=== PATIENT | male | born 1970 | race Caucasian/White ===

== ENCOUNTER 2022-01-27 18:28 | Observation (INO) | payer OTHER, SELFPAY ==
[2022-01-27 18:37] VITALS: BP 142/81; PULSE 63; RESP 18; TEMP 36.7; O2SAT 97
--- NOTE | 2022-01-27 18:41 | DI.RAD.S_ITS ---
PROCEDURE: XR CHEST 1V INDICATIONS: chest pain TECHNIQUE: One view of the chest was acquired. COMPARISON: None. FINDINGS: Surgical changes and devices: None. Lungs and pleura: Lungs are clear. No pleural effusions or pneumothorax. Mediastinum: Mediastinal contours appear normal. Heart size is normal. Bones and chest wall: No suspicious bony lesions. Overlying soft tissues appear unremarkable. IMPRESSION: No acute cardiopulmonary abnormalities or focal airspace disease. Dictated by: Kevin Myrick M.D. on 01/27/2022 at 19:06 Approved by: Kevin Myrick M.D. on 01/27/2022 at 19:07
[2022-01-27 19:11] LABS: Add Manual Diff / Slide Review NO; Basophils Absolute Auto 0 /uL (0-100); Basophils Percent Auto 0.5 % (0-2); Eosinophils Absolute Auto 200 /uL (0-450); Eosinophils Percent Auto 2.9 % (2-4); Hematocrit 42.7 % (41-53); Hemoglobin 14.6 g/dL (13.5-17.5); Lymphocytes Absolute Auto 2600 /uL (1100-4500); Lymphocytes Percent Auto 39.2 % (25-40); Mean Corpuscular HGB Conc 34.2 % (30-36); Mean Corpuscular Hemoglobin 31.6 PG (26-34); Mean Corpuscular Volume 92.5 fL (80-100); Monocytes Absolute Auto 600 /uL (0-900); Monocytes Percent Auto 8.6 % (3-14); Neutrophils Absolute Auto 3200 /uL (1500-7000); Neutrophils Percent Auto 48.8 % (50-75); Platelet Count 229 X10^3/uL (150-400); Red Blood Cell Count 4.62 X10^6/uL (4.5-5.9); Red Cell Distribution Width 12.4 % (11.6-14.8); White Blood Cell Count 6.6 X10^3/uL (4.5-11.0)
[2022-01-27 19:35] LABS: Alanine Aminotransferase 69 IU/L (<50); Albumin 4.5 g/dL (3.5-5.0); Albumin Globulin Ratio 1.2 (1.0-2.8); Alkaline Phosphatase 58 U/L (38-126); Aspartate Aminotransferase 98 IU/L (17-59); BUN Creatinine Ratio 15.8 (6-22); Bilirubin Total 0.4 mg/dL (0.2-1.3); Blood Urea Nitrogen 12 mg/dL (9-20); Calcium 8.9 mg/dL (8.4-10.2); Carbon Dioxide 28 mmol/L (22-32); Chloride 100 mmol/L (98-107); Creatine Kinase 1172 U/L (55-170); Estimated Glomerular Filt Rate > 60 mL/min (>60); Globulin 3.9 g/dL (1.7-4.1); Glucose 106 mg/dL (70-100); Lipase 63 U/L (23-300); Magnesium 2.1 mg/dL (1.6-2.3); Sodium 141 mmol/L (137-145); Total Protein 8.4 g/dL (6.3-8.2)
[2022-01-27 19:46] LABS: Troponin I < 0.012 ng/mL (0.01-0.034)
[2022-01-27 19:49] LABS: CKMB % Relative Index 0.3 % (1.5-5.0); Creatine Kinase MB 3.14 ng/mL (<2.37)
[2022-01-27 19:51] LABS: HEMOLYSIS 57 (0-50)
[2022-01-27 22:00] LABS: Erythrocyte Sedimentation Rate 25 MM/HR (0-15)
[2022-01-27 22:10] VITALS: PULSE 72; O2SAT 99
[2022-01-27] MEDS: ASPIRIN 81 MG CHEW TAB 324 MG PO (22:25)
[2022-01-27 22:27] VITALS: BP 146/78; PULSE 66; O2SAT 97
--- NOTE | 2022-01-27 22:27 | ED.CHESTPAIN ---
HPI - Chest Pain General Chief Complaint: Chest Pain Stated Complaint: Chest pain, Fatigue, High pulse Time Seen by Provider: 01/27/22 22:07 Source: patient Mode of arrival: Ambulatory History of Present Illness HPI narrative: Patient here with . Chest pain-free at this time. Had 2 episodes this afternoon with near syncope/dizziness and palpitations. Had some discomfort in the chest. Currently symptom-free. Patient did receive COVID booster this past Tuesday. In the past vaccinations he would have chest discomfort. However today's symptoms are new. He was exercising at home and what was supposed to take 42 minutes ended up taking a lot longer. He was dizzy and felt like he was going to pass out. Had palpitations. Later in the day he went for very light walk and when he returned he was very fatigued tired with a very fast heart rate. Near-syncope as well. And dizziness. Patient had stress test many many years ago. He does have hypercholesteremia but is not on any medications. No recent illness otherwise. No primary family history of coronary artery disease. Related Data Home Medications Medication Instructions Recorded Confirmed fluticasone propionate 110 1 puff inhalation DAILY 01/28/22 01/28/22 mcg/actuation HFA aerosol inhaler (Flovent HFA) levetiracetam 500 mg 1,500 mg PO DAILY 01/28/22 01/28/22 tablet,extended release 24 hr (Keppra XR) levetiracetam 500 mg 2,000 mg PO ONCE PM 01/28/22 01/28/22 tablet,extended release 24 hr (Keppra XR) levothyroxine 150 mcg tablet 150 mcg PO DAILY 01/28/22 01/28/22 (Synthroid) Allergies Allergy/AdvReac Type Severity Reaction Status Date / Time ciprofloxacin Allergy Verified 01/27/22 18:41 erythromycin base Allergy Verified 01/27/22 18:41 oxcarbazepine Allergy Verified 01/27/22 18:41 [From Trileptal] prochlorperazine Allergy Verified 01/27/22 18:41 [From Compazine] Sulfa (Sulfonamide Allergy Verified 01/27/22 18:41 Antibiotics) phenytoin [From Dilantin] AdvReac Verified 01/27/22 18:41 Review of Systems Review of Systems Narrative: GENERAL: Denies chills, fatigue, malaise, fever, sweats. HEENT: Denies sinus pain, ear pain, sore throat RESPIRATORY: Denies dyspnea, cough CARDIOVASCULAR: Positive chest pain, palpitations, near-syncope GASTROINTESTINAL: Denies nausea, vomiting, abdominal pain : Denies dysuria, frequency, hematuria MUSCULOSKELETAL: denies muscle or bony pain SKIN: Denies rash, skin lesions NEUROLOGIC: Denies weakness, numbness, positive dizziness ROS Unobtainable: All systems reviewed & are unremarkable except as noted in HPI and below Patient History Social History household members: spouse Smoking Status: Never smoker alcohol intake: current Exam Narrative Exam Narrative: GENERAL: in no distress, not toxic not dyspneic HEAD: Normocephalic. EYES: Pupils equal round No scleral icterus. ENT: Mucous membranes moist. NECK: Trachea midline. CARDIOVASCULAR: Regular rate and rhythm without murmurs RESPIRATORY: Clear to auscultation. Breath sounds equal bilaterally. No wheezes, rales, or rhonchi. GASTROINTESTINAL: Abdomen soft, non-tender EXTREMITIES: No gross deformities. BACK: No flank tenderness. NEURO: AOx4. SKIN: Warm and dry PSYCH: Not anxious, is cooperative Initial Vital Signs Initial Vital Signs: Vital Signs Temperature 98.1 F 01/27/22 18:37 Pulse Rate 63 01/27/22 18:37 Respiratory Rate 18 01/27/22 18:37 Blood Pressure 142/81 H 01/27/22 18:37 Pulse Oximetry 97 01/27/22 18:37 Oxygen Delivery Method 01/27/22 18:37 Course Course Course Narrative: No new issues during course of stay Decision to Admit Date: 01/27/22 Decision to Admit time: 22:29 Orders Ordered: ED Orders 01/27/22 22:47 EC echo doppler complete Urgent Exercise treadmill NON NUC Urgent 01/27/22 22:48 Education, smoking cessation ONGOING 01/27/22 22:52 Urinalysis and Microscopic Urgent 01/27/22 23:56 COVID19 -Nasal RAPID/Pre-Proc Stat 01/28/22 00:55 Troponin I Q6H 01/28/22 05:00 Basic Metabolic Panel Routine 01/28/22 06:30 Troponin I Q6H Aspirin (Aspirin Ec 81 Mg Tablet) 81 mg PO DAILY [facility]MA[facility] Enoxaparin Sodium (Enoxaparin 40 Mg/0.4 Ml Syringe) 40 mg SUBCUT DAILY [facility] Morphine Sulfate (Morphine 2 Mg/Ml Inj) 2 mg IV Q5MIN PRN PRN Reason: Chest Pain Naloxone HCl (Naloxone 0.4 Mg/Ml Vial) 0.2 mg IV Q2MIN PRN PRN Reason: Opiate Reversal Nitroglycerin (Nitroglycerin 0.4 Mg Sl Tab) 0.4 mg SL [id number] PRN PRN Reason: Chest Pain Sodium Chloride (Sodium Chloride 0.9% Flush) 10 ml IV BID ALMAZ Sodium Chloride (Sodium Chloride 0.9% Flush) 10 ml IV PRN PRN PRN Reason: Flush Discontinued Medications Aspirin (Aspirin 81 Mg Chew Tab) 324 mg PO NOW ONE Stop: 01/27/22 22:20 Last Admin: 01/27/22 22:25 Dose: 324 mg Documented By: NR Reevaluation(s) Reevaluation #1: Reviewed results with patient and . Agree for admit. Currently chest pain-free no palpitations no dizziness Time: 22:30 Consultations Consultation #1: Spoke with hospitalist, Serena Wong, will admit patient Time: 23:11 Vital Signs Vital signs: Vital Signs - 8 hr 01/27/22 22:10 01/27/22 22:27 01/27/22 22:27 Pulse Rate 72 66 Respiratory Rate Blood Pressure 146/78 H Pulse Oximetry 99 97 01/27/22 22:30 01/27/22 22:30 01/27/22 23:00 Pulse Rate 66 Respiratory Rate 13 Blood Pressure 148/78 H 124/71 Pulse Oximetry 96 01/27/22 23:00 Pulse Rate 52 L Respiratory Rate 10 L Blood Pressure Pulse Oximetry 99 MDM - Chest Pain Lab Data Result diagrams: 01/27/22 18:30 01/27/22 18:30 Labs: Lab Results 01/27/22 01/27/22 01/27/22 Range/Units 18:30 18:30 18:30 WBC 6.6 (4.5-11.0) X10^3/uL RBC 4.62 (4.5-5.9) X10^6/uL Hgb 14.6 (13.5-17.5) g/dL Hct 42.7 (41-53) % MCV 92.5 (80-100) fL MCH 31.6 (26-34) PG MCHC 34.2 (30-36) % RDW 12.4 (11.6-14.8) % Plt Count 229 (150-400) X10^3/uL Neut % (Auto) 48.8 L (50-75) % Lymph % (Auto) 39.2 (25-40) % [place] % (Auto) 8.6 (3-14) % Eos % (Auto) 2.9 (2-4) % Baso % (Auto) 0.5 (0-2) % Neut # (Auto) 3200 (3629-7482) /uL Lymph # (Auto) 2600 (3227-1933) /uL [place] # (Auto) 600 (0-900) /uL Eos # (Auto) 200 (0-450) /uL Baso # (Auto) 0 (0-100) /uL ESR 25 H (0-15) MM/HR PT (10.1-12.7) SECONDS INR (0.9-1.3) APTT (26-36) SECONDS Sodium 141 (137-145) mmol/L Potassium 4.0 (3.4-5.1) mmol/L Chloride 100 (98-107) mmol/L Carbon Dioxide 28 (22-32) mmol/L BUN 12 (9-20) mg/dL Creatinine 0.76 (0.66-1.25) mg/dL Estimated GFR > 60 (>60) mL/min BUN/Creatinine Ratio 15.8 (6-22) Glucose 106 H (70-100) mg/dL Calcium 8.9 (8.4-10.2) mg/dL Magnesium 2.1 (1.6-2.3) mg/dL Total Bilirubin 0.4 (0.2-1.3) mg/dL AST 98 H (17-59) IU/L ALT 69 H (<50) IU/L Alkaline Phosphatase 58 (38-126) U/L Lactate Dehydrogenase (313-618) U/L Total Creatine Kinase 1172 H (55-170) U/L CK-MB (CK-2) 3.14 H (<2.37) ng/mL CK-MB (CK-2) Rel Index 0.3 L (1.5-5.0) % Troponin I < 0.012 (0.01-0.034) ng/mL NT-Pro-B Natriuret Pep (<125) pg/mL Total Protein 8.4 H (6.3-8.2) g/dL Albumin 4.5 (3.5-5.0) g/dL Globulin 3.9 (1.7-4.1) g/dL Albumin/Globulin Ratio 1.2 (1.0-2.8) Triglycerides (35-150) mg/dL Cholesterol (140-199) mg/dL LDL Cholesterol, Calc HDL Cholesterol (40-60) mg/dL Amylase (30-110) U/L Lipase 63 (23-300) U/L 01/27/22 01/27/22 01/27/22 Range/Units 18:50 18:50 18:50 WBC (4.5-11.0) X10^3/uL RBC (4.5-5.9) X10^6/uL Hgb (13.5-17.5) g/dL Hct (41-53) % MCV (80-100) fL MCH (26-34) PG MCHC (30-36) % RDW (11.6-14.8) % Plt Count (150-400) X10^3/uL Neut % (Auto) (50-75) % Lymph % (Auto) (25-40) % [place] % (Auto) (3-14) % Eos % (Auto) (2-4) % Baso % (Auto) (0-2) % Neut # (Auto) (5787-0761) /uL Lymph # (Auto) (6071-4755) /uL [place] # (Auto) (0-900) /uL Eos # (Auto) (0-450) /uL Baso # (Auto) (0-100) /uL ESR (0-15) MM/HR PT (10.1-12.7) SECONDS INR (0.9-1.3) APTT (26-36) SECONDS Sodium (137-145) mmol/L Potassium (3.4-5.1) mmol/L Chloride (98-107) mmol/L Carbon Dioxide (22-32) mmol/L BUN (9-20) mg/dL Creatinine (0.66-1.25) mg/dL Estimated GFR (>60) mL/min BUN/Creatinine Ratio (6-22) Glucose (70-100) mg/dL Calcium (8.4-10.2) mg/dL Magnesium 2.2 (1.6-2.3) mg/dL Total Bilirubin (0.2-1.3) mg/dL AST (17-59) IU/L ALT (<50) IU/L Alkaline Phosphatase (38-126) U/L Lactate Dehydrogenase (313-618) U/L Total Creatine Kinase (55-170) U/L CK-MB (CK-2) (<2.37) ng/mL CK-MB (CK-2) Rel Index (1.5-5.0) % Troponin I (0.01-0.034) ng/mL NT-Pro-B Natriuret Pep 54 (<125) pg/mL Total Protein (6.3-8.2) g/dL Albumin (3.5-5.0) g/dL Globulin (1.7-4.1) g/dL Albumin/Globulin Ratio (1.0-2.8) Triglycerides 441 H (35-150) mg/dL Cholesterol 317 H (140-199) mg/dL LDL Cholesterol, Calc TNP HDL Cholesterol 38 L (40-60) mg/dL Amylase (30-110) U/L Lipase (23-300) U/L 01/27/22 01/27/22 01/27/22 Range/Units 18:50 18:50 18:50 WBC (4.5-11.0) X10^3/uL RBC (4.5-5.9) X10^6/uL Hgb (13.5-17.5) g/dL Hct (41-53) % MCV (80-100) fL MCH (26-34) PG MCHC (30-36) % RDW (11.6-14.8) % Plt Count (150-400) X10^3/uL Neut % (Auto) (50-75) % Lymph % (Auto) (25-40) % [place] % (Auto) (3-14) % Eos % (Auto) (2-4) % Baso % (Auto) (0-2) % Neut # (Auto) (9012-0760) /uL Lymph # (Auto) (0305-8423) /uL [place] # (Auto) (0-900) /uL Eos # (Auto) (0-450) /uL Baso # (Auto) (0-100) /uL ESR (0-15) MM/HR PT 11.0 (10.1-12.7) SECONDS INR 1.0 (0.9-1.3) APTT 29 (26-36) SECONDS Sodium (137-145) mmol/L Potassium (3.4-5.1) mmol/L Chloride (98-107) mmol/L Carbon Dioxide (22-32) mmol/L BUN (9-20) mg/dL Creatinine (0.66-1.25) mg/dL Estimated GFR (>60) mL/min BUN/Creatinine Ratio (6-22) Glucose (70-100) mg/dL Calcium (8.4-10.2) mg/dL Magnesium (1.6-2.3) mg/dL Total Bilirubin (0.2-1.3) mg/dL AST (17-59) IU/L ALT (<50) IU/L Alkaline Phosphatase (38-126) U/L Lactate Dehydrogenase 548 (313-618) U/L Total Creatine Kinase (55-170) U/L CK-MB (CK-2) (<2.37) ng/mL CK-MB (CK-2) Rel Index (1.5-5.0) % Troponin I (0.01-0.034) ng/mL NT-Pro-B Natriuret Pep (<125) pg/mL Total Protein (6.3-8.2) g/dL Albumin (3.5-5.0) g/dL Globulin (1.7-4.1) g/dL Albumin/Globulin Ratio (1.0-2.8) Triglycerides (35-150) mg/dL Cholesterol (140-199) mg/dL LDL Cholesterol, Calc HDL Cholesterol (40-60) mg/dL Amylase 62 (30-110) U/L Lipase (23-300) U/L Imaging Data Chest x-ray: Radiologist's Impression: [address] [address] XRay Report Signed Patient: Wale Olivarez MR#: [id number] : 1970 Acct:[id number] Age/Sex: 51 / M Date of Service: 01/27/22 Loc: ED Accession Number: [id number] ?? Procedure: XR chest 1V Ordering Provider: Ayad Guadalupe MD PROCEDURE:? XR CHEST 1V ? INDICATIONS:? chest pain ? TECHNIQUE:? One view of the chest was acquired.? ? COMPARISON:? None. ? FINDINGS:? ? Surgical changes and devices:? None.? ? Lungs and pleura:? Lungs are clear.? No pleural effusions or pneumothorax.? ? Mediastinum:? Mediastinal contours appear normal.? Heart size is normal.? ? Bones and chest wall:? No suspicious bony lesions.? Overlying soft tissues appear unremarkable.? ? IMPRESSION:? No acute cardiopulmonary abnormalities or focal airspace disease. ? Dictated by: Kevin Myrick M.D. on 01/27/2022 at 19:06 ? ? Approved by: Kevin Myrick M.D. on 01/27/2022 at 19:07 ? ECG Data Interpretation: Normal sinus rhythm rate [address] elevation or depression MDM Narrative Medical decision making narrative: Appropriate for admission for stress test and echocardiogram. Essentially patient did have near-syncope while exerting himself today. Prudent to have proper stress test and echocardiogram. Reviewed with patient and agree for admit. Reviewed with hospitalist agrees for admit. Discharge Plan Departure Patient Disposition: Admitted as Observation Clinical Impression: Atypical chest pain Admit Date/Time: 01/27/22 23:12 Admit Provider: Serena Wong
[2022-01-27 22:30] VITALS: BP 148/78; PULSE 66; RESP 13; O2SAT 96
--- NOTE | 2022-01-27 22:47 | DI.ECHO.S_ITS ---
[facility] +---------+ : : [address] : : : : [id number] : : : : Phone: [phone]+ Echocardiogram Report + + :Name: PATRIC PUCKETT Study Date: 01/28/2022 Height: 74 in : :[facility] ReadingLocation: Weight: 190 lb : : Gender: Male BSA: 2.1 m2 : :: 1970 Age: 51 yrs BP: 145/76 mmHg: :Reason For Study: CHEST PAIN : :Ordering Physician: ARNOLDO, : :HOLLIE Performed By: Vivian Shen : :Referring: HOLLIE MCLAUGHLIN : + + Interpretation Summary The ejection fraction is estimated to be 50-55%. Diastolic parameters suggest probable normal left ventricular diastolic function and normal filling pressures. The right ventricle is normal in size and function. The IVC is of normal diameter and collapses greater than 50% with a sniff. This suggests a low right atrial pressure of 3 mm Hg. No significant valvular disease. Procedure: A two-dimensional transthoracic echocardiogram with color flow and Doppler was performed. The study quality was technically adequate. There is no prior echocardiogram noted for this patient. The patient was in sinus bradycardia with heart rates between 50-59 bpm during the exam. Left Ventricle: The left ventricle is normal in size and wall thickness. The ejection fraction is estimated to be 50-55%. There are no obvious focal wall motion abnormalities noted but poor endocardial definition reduces the sensitivity for the detection of such. Diastolic parameters suggest probable normal left ventricular diastolic function and normal filling pressures. Right Ventricle: The right ventricle is normal in size and function. Atria: The left atrial size is normal. Right atrial size is normal. There is no Doppler evidence for an interatrial shunt. Mitral Valve: The mitral valve is normal in structure and function. There is trace mitral regurgitation. Aortic Valve: The aortic valve is trileaflet. The aortic valve opens well. There is no aortic valve stenosis. No aortic regurgitation is present. Tricuspid Valve: The tricuspid valve is normal in structure and function. There is trace tricuspid regurgitation. Pulmonic Valve: The pulmonic valve leaflets are thin and pliable; valve motion is normal. There is mild pulmonic regurgitation. Great Vessels: The aortic root is normal size. The dimensions of the ascending aorta are normal. The IVC is of normal diameter and collapses greater than 50% with a sniff. This suggests a low right atrial pressure of 3 mm Hg. Pericardium/ Pleura There is no pericardial effusion. There is no pleural effusion. MMode/2D Measurements & Calculations LVIDd: 5.4 cm LVOT diam: 2.2 cm LVIDs: 3.7 cm Ao root diam: 3.8 cm FS: 30.6 % asc Aorta Diam: 3.0 cm EPSS: 1.0 cm IVSd: 0.88 cm LVPWd: 0.77 cm LV castellano. diameter/BSA (cm/m^2): 2.5 LV sys. diameter/BSA (cm/m^2): 1.8 LA A2 area: 18.8 cm2 RA long axis: 5.5 cm LA A4 area: 15.3 cm2 RA area: 17.4 cm2 LA length (vol): 4.9 cm RA vol: 46.9 ml LA vol: 49.5 ml RA : 22.1 ml/m2 LA vol index: 23.3 ml/m2 IVC diam: 1.6 cm RVD1 (basal): 3.7 cm RVD2 (mid): 2.8 cm TAPSE: 1.8 cm Doppler Measurements & Calculations Ao V2 max: 117.4 cm/sec LVOT Max Jared: 88.5 cm/sec Ao V2 mean: 85.9 cm/sec LV V1 max P.1 mmHg Ao max P.5 mmHg LV V1 VTI: 18.9 cm Ao mean P.2 mmHg JOSELITO(I,D): 2.5 cm2 Ao V2 VTI: 28.4 cm JOSELITO(V,D): 2.8 cm2 sev ratio: 0.66 JOSELITO indexed to BSA (cm^2/m^2): 1.2 MV E max jared: 52.7 cm/sec PA V2 max: 77.4 cm/sec MV A max jared: 31.8 cm/sec PA V2 mean: 54.9 cm/sec MV E/A: 1.7 PA mean P.3 mmHg Med Peak E' Jared: 9.6 cm/sec PA pr(Accel): 1.9 mmHg E/E' med: 5.5 Lat Peak E' Jared: 12.3 cm/sec E/E' lat: 4.3 E/e' average: 4.9 MV dec time: 0.35 sec SV(LVOT): 70.2 ml Reading Physician:KALI
[2022-01-27 23:00] VITALS: BP 124/71; PULSE 52; RESP 10; O2SAT 99
[2022-01-27 23:25] LABS: Amylase 62 U/L (30-110); Lactate Dehydrogenase 548 U/L (313-618); Magnesium 2.2 mg/dL (1.6-2.3)
[2022-01-27 23:26] LABS: Cholesterol 317 mg/dL (140-199); HDL Cholesterol 38 mg/dL (40-60); Triglycerides 441 mg/dL (35-150)
[2022-01-27 23:29] LABS: PTT Partial Thromboplastin Tim 29 SECONDS (26-36)
[2022-01-27 23:30] VITALS: BP 118/67; PULSE 53; RESP 13; O2SAT 98
[2022-01-27 23:35] LABS: NT-proBNP (BNP-Adult 18+) 54 pg/mL (<125)
--- NOTE | 2022-01-27 23:48 | PC.NURSE ---
provider verbalized okay for patient to take his nightly dose of keppra. patient took 2000mg of keppra
[2022-01-28 00:17] LABS: COVID19 -Nasal RAPID Negative (Negative)
[2022-01-28 00:19] VITALS: BMI 24.3
[2022-01-28 00:34] VITALS: BP 145/76; PULSE 56; RESP 17; TEMP 36.6; O2SAT 99
[2022-01-28 01:30] LABS: Troponin I < 0.012 ng/mL (0.01-0.034)
[2022-01-28 01:41] VITALS: O2SAT 98
--- NOTE | 2022-01-28 01:49 | PC.NURSE ---
0003 Patient admitted from ER for C/O CP. Oriented to his room showed how to use his call light, TV & bed controls. No history of any falls at home, bed alarm not activated. Home medications is in his bag, declined to store his home meds. in our pharmacy. All his belongings is in the room. Informed patient that per our hospital policy, he can't take his own meds. unless MD order he can take his own medications & our pharmacist ID his med. Will monior & continue POC.
--- NOTE | 2022-01-28 05:59 | PM.HP.1 ---
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 Patient presented to the ED for complaints of 2 episodes this afternoon with near syncope/dizziness and palpitations.? Had some discomfort in the chest clavicle-2nd intercostal. Patient reports he initially experienced sternal left side chest discomfort with deep breathing and movement did not radiate was able to press and elicit pain, this discomfort continues to come and go with movement. Patient notes that while he is consistently physically active with exercise he recently initiated an aggressive weight training exercise routine within the last week. Second episode was midsternal left side approximately 4-6th intercostal spaces stabbing lasting only a few seconds, no radiation, during the end of his walk this morning he is not able to reproduce this pain with palpation, he did not experience diaphoresis was mildly short of breath, no headache, changes in vision, weakness, numbness, tingling, he did endorse feeling dizzy, near syncopal episode. Patient also noted once home and resting heart rate was in the 140s and his Apple watch had difficulty reading the rhythm. Patient notes he has several family members with a history of atrial fibrillation but no other cardiac history.?Was symptom-free upon arrival in ED.? Patient did receive COVID booster this past Tuesday.? In the past vaccinations he would have chest discomfort.? However today's symptoms are new.? He was exercising at home and what was supposed to take 42 minutes ended up taking a lot longer.? He was dizzy, very fatigued and felt like he was going to pass out.? Had palpitations. Patient had stress test many many years ago.? He does have hypercholesteremia chronically since childhood, unable to tolerate statins, has been prescribed injectable medication-Repatha but [place] No recent illness otherwise.? No primary family history of coronary artery disease, positive history for heart attacks to both grandfathers, and multiple family members with atrial fibrillation. Patient notes he has had repeated episodes of pneumonia in the past, and suffers from mild asthma, but no cardiac history. Does have a history of adrenal insufficiency but has not required treatment for the past year or 2. Patient takes Flovent, Keppra, and levothyroxine. Patient notes that his seizure disorder results in comprehension, and dysarthria, with a postictal memory loss, but without loss of consciousness or uncontrolled muscle movement. Patient was stable and asymptomatic upon admit temp 98.1?, BP 142/81, HR 63, R 18, O2 saturation 97% on room air. Patient's CBC and CMP were WNL ESR 25 likely secondary to COVID booster, AST 90 ALT 69, these are chronic for the patient and at baseline, T CK 1172, CK 2 3.14, troponin, lipase WNL, total protein 8.4, chest x-ray was negative for any acute cardiopulmonary processes, EKG NSR with a rate of [address] or T-wave changes. Patient admitted for chest pain, tachycardia, near-syncope, for risk stratification. Heart score 2 Patient History Medical History (Updated 01/28/22 @ 06:23 by FADY Bills-IRINA) Astrocytoma of frontal lobe Chronic nonalcoholic liver disease Epilepsy History of adrenal insufficiency History of hypercholesterolemia History of radiation therapy 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 Surgical History (Updated 01/28/22 @ 06:23 by FADY Bills-IRINA) History of adenoidectomy History of appendectomy History of brain surgery History of tonsillectomy Family & Social History Family History Grandfather Heart attack Atrial fibrillation by electrocardiogram Daughter Polycythemia Social History: household members spouse Prior Living Arrangements House Safety & Behavioral: Feels Safe in Current Yes Environment Been Physically Hurt or No Threatened By a Person Tobacco & Substance use: Smoking Status Never smoker alcohol intake current alcohol intake frequency holiday/special occasion Substance Use Type does not use Meds Home Medications and Allergies Home Medications Medication Instructions Recorded Confirmed Type fluticasone propionate 110 1 puff inhalation DAILY 01/28/22 01/28/22 History mcg/actuation HFA aerosol inhaler (Flovent HFA) levetiracetam 500 mg 1,500 mg PO DAILY 01/28/22 01/28/22 History tablet,extended release 24 hr (Keppra XR) levetiracetam 500 mg 2,000 mg PO ONCE PM 01/28/22 01/28/22 History tablet,extended release 24 hr (Keppra XR) levothyroxine 150 mcg tablet 150 mcg PO DAILY 01/28/22 01/28/22 History (Synthroid) Allergies Allergy/AdvReac Type Severity Reaction Status Date / Time ciprofloxacin Allergy Verified 01/27/22 18:41 erythromycin base Allergy Verified 01/27/22 18:41 oxcarbazepine Allergy Verified 01/27/22 18:41 [From Trileptal] prochlorperazine Allergy Verified 01/27/22 18:41 [From Compazine] Sulfa (Sulfonamide Allergy Verified 01/27/22 18:41 Antibiotics) phenytoin [From Dilantin] AdvReac Verified 01/27/22 18:41 Review of Systems Review of Systems Narrative: All 12 point systems reviewed with the patient and are negative except otherwise documented. Exam Vital Signs (past 8 hours): - 01/27/22 22:10 01/27/22 22:27 01/27/22 22:27 Temperature Pulse Rate 72 66 Respiratory Rate Blood Pressure 146/78 H Pulse Oximetry 99 97 Oxygen Delivery Method Oxygen Flow Rate 01/27/22 22:30 01/27/22 22:30 01/27/22 23:00 Temperature Pulse Rate 66 Respiratory Rate 13 Blood Pressure 148/78 H 124/71 Pulse Oximetry 96 Oxygen Delivery Method Oxygen Flow Rate 01/27/22 23:00 01/27/22 23:30 01/27/22 23:30 Temperature Pulse Rate 52 L 53 L Respiratory Rate 10 L 13 Blood Pressure 118/67 Pulse Oximetry 99 98 Oxygen Delivery Method Oxygen Flow Rate 01/28/22 00:34 01/28/22 01:41 Temperature 97.9 F Pulse Rate 56 L Respiratory Rate 17 Blood Pressure 145/76 H Pulse Oximetry 99 98 Oxygen Delivery Method Room Air Oxygen Flow Rate 0 Oxygen Delivery Method Room Air Oxygen Flow Rate 0 Narrative Exam Narrative: General: Patient is a esme well-developed, well-nourished, fit male in no distress at this time. HEENT: Normocephalic, atraumatic, extraocular muscles intact, oral pharynx is clear and mucous membranes are moist. Neck is supple and symmetric, trachea is midline, no adenopathy, no thyroid enlargement, nontender, no masses palpated. Negative for JVD Chest: Normal AP diameter and contour without kyphoscoliosis, no nasal flaring, retractions, or tachypneic labored Lungs: Auscultation of all lung campos are clear without adventitious sounds, wheezes, rhonchi, or rales. Cardio: S1 & S2 with regular rate and rhythm without murmur, rubs, or gallops, no carotid bruit, no cardiac pulsations present. Abdomen: Soft nontender, negative for organomegaly, or masses. Bowel sounds are present in all 4 quadrants without guarding or rebound, no CVA tenderness. Musculoskeletal: Muscle strength and tone are equal within normal limits, no deformity, crepitus, effusions, cyanosis, clubbing or edema present. Full range of motion intact radial and pedal pulses are normal. Skin: Warm dry and intact without rashes, ulcerations or petechiae. Neuro: Alert and orientated x3, strength is +5/5 in all extremities, sensation to touch intact, no gross deficits noted of cranial nerves. Psych: Patient has a well-kept appearance, appropriate affect, mental status attitude thought context and judgment are appropriate for age. Objective Labs Result Diagrams: 01/27/22 18:30 01/27/22 18:30 Labs: Laboratory Results - last 24 hr 01/27/22 01/27/22 01/27/22 18:30 18:30 18:30 WBC 6.6 RBC 4.62 Hgb 14.6 Hct 42.7 MCV 92.5 MCH 31.6 MCHC 34.2 RDW 12.4 Plt Count 229 Neut % (Auto) 48.8 L Lymph % (Auto) 39.2 [place] % (Auto) 8.6 Eos % (Auto) 2.9 Baso % (Auto) 0.5 Neut # (Auto) 3200 Lymph # (Auto) 2600 [place] # (Auto) 600 Eos # (Auto) 200 Baso # (Auto) 0 ESR 25 H PT INR APTT Sodium 141 Potassium 4.0 Chloride 100 Carbon Dioxide 28 BUN 12 Creatinine 0.76 Estimated GFR > 60 BUN/Creatinine Ratio 15.8 Glucose 106 H Calcium 8.9 Magnesium 2.1 Total Bilirubin 0.4 AST 98 H ALT 69 H Alkaline Phosphatase 58 Lactate Dehydrogenase Total Creatine Kinase 1172 H CK-MB (CK-2) 3.14 H CK-MB (CK-2) Rel Index 0.3 L Troponin I < 0.012 NT-Pro-B Natriuret Pep Total Protein 8.4 H Albumin 4.5 Globulin 3.9 Albumin/Globulin Ratio 1.2 Triglycerides Cholesterol LDL Cholesterol, Calc HDL Cholesterol Amylase Lipase 63 SARS-CoV-2 (PCR) 01/27/22 01/27/22 01/27/22 18:50 18:50 18:50 WBC RBC Hgb Hct MCV MCH MCHC RDW Plt Count Neut % (Auto) Lymph % (Auto) [place] % (Auto) Eos % (Auto) Baso % (Auto) Neut # (Auto) Lymph # (Auto) [place] # (Auto) Eos # (Auto) Baso # (Auto) ESR PT INR APTT Sodium Potassium Chloride Carbon Dioxide BUN Creatinine Estimated GFR BUN/Creatinine Ratio Glucose Calcium Magnesium 2.2 Total Bilirubin AST ALT Alkaline Phosphatase Lactate Dehydrogenase Total Creatine Kinase CK-MB (CK-2) CK-MB (CK-2) Rel Index Troponin I NT-Pro-B Natriuret Pep 54 Total Protein Albumin Globulin Albumin/Globulin Ratio Triglycerides 441 H Cholesterol 317 H LDL Cholesterol, Calc TNP HDL Cholesterol 38 L Amylase Lipase SARS-CoV-2 (PCR) 01/27/22 01/27/22 01/27/22 18:50 18:50 18:50 WBC RBC Hgb Hct MCV MCH MCHC RDW Plt Count Neut % (Auto) Lymph % (Auto) [place] % (Auto) Eos % (Auto) Baso % (Auto) Neut # (Auto) Lymph # (Auto) [place] # (Auto) Eos # (Auto) Baso # (Auto) ESR PT 11.0 INR 1.0 APTT 29 Sodium Potassium Chloride Carbon Dioxide BUN Creatinine Estimated GFR BUN/Creatinine Ratio Glucose Calcium Magnesium Total Bilirubin AST ALT Alkaline Phosphatase Lactate Dehydrogenase 548 Total Creatine Kinase CK-MB (CK-2) CK-MB (CK-2) Rel Index Troponin I NT-Pro-B Natriuret Pep Total Protein Albumin Globulin Albumin/Globulin Ratio Triglycerides Cholesterol LDL Cholesterol, Calc HDL Cholesterol Amylase 62 Lipase SARS-CoV-2 (PCR) 01/27/22 01/28/22 23:56 00:55 WBC RBC Hgb Hct MCV MCH MCHC RDW Plt Count Neut % (Auto) Lymph % (Auto) [place] % (Auto) Eos % (Auto) Baso % (Auto) Neut # (Auto) Lymph # (Auto) [place] # (Auto) Eos # (Auto) Baso # (Auto) ESR PT INR APTT Sodium Potassium Chloride Carbon Dioxide BUN Creatinine Estimated GFR BUN/Creatinine Ratio Glucose Calcium Magnesium Total Bilirubin AST ALT Alkaline Phosphatase Lactate Dehydrogenase Total Creatine Kinase CK-MB (CK-2) CK-MB (CK-2) Rel Index Troponin I < 0.012 NT-Pro-B Natriuret Pep Total Protein Albumin Globulin Albumin/Globulin Ratio Triglycerides Cholesterol LDL Cholesterol, Calc HDL Cholesterol Amylase Lipase SARS-CoV-2 (PCR) Negative Assessment & Plan Assessment & Plan narrative: Wale Olivarez is a 51-year-old male with a history(misdx) 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 Patient admitted for chest pain, tachycardia, near-syncope, for risk stratification. Heart score 2 1. Chest pain (dizziness, palpation, tachycardia, near-syncope), acute, present on admission -heart score of 2, family history of heart attack, atrial fibrillation, hypercholesterolemia -patient admitted for chest pain rule out risk stratification -placed on telemedicine -stress test and echo ordered for tomorrow -trend troponins, Mag -ASA, Lovenox 2. Hypercholesteremia, chronic, present on admission -ordered lipids -patient unable to tolerate statins -was prescribed Repatha injectable but has been unable to obtain medication. 3. Hypothyroidism/hypopituitarism secondary to brain surgery, chronic, present on admission -TSH with T4 ordered -continue levothyroxine -ordered Am cortisol due to hx of adrenal adrenal insufficiency 4. Epilepsy(simple partial seizures), secondary to brain surgery, chronic, present on admission-well controlled -continue Keppra 5. Liver disease, chronic, not related to alcohol, present on admission -AST 98, ALT 69 -ordered lipase, amylase, LDH 6. Asthma, mild, chronic, present on [id number] -continue Flovent Code status:Full Surrogate decision maker: Aung COVID PCR:Negative COVID vaccination: Full vax DVT/VTE prophylaxis: Lovenox and SCDs Disposition: Patient admitted for observation for chest pain rule out/risk stratification, expected length of stay less than 2 midnights. I have utilized all available immediate resources to obtain, update, or review the patient's current medications. I confirmed that the patient's advanced care plan is present, Code status is documented and/or surrogate decision maker is listed in the patient's medical record. Time Spent With Patient Critical Care time: I spent a total of [] minutes of critical care time on this patient's care today; this time is exclusive of procedural time. Quality VTE Deep Vein Thrombosis/Pulmonary Embolism Present on Admission: No
[2022-01-28 06:15] VITALS: BP 91/51; PULSE 62; RESP 16; TEMP 36.6; O2SAT 97
[2022-01-28 06:40] VITALS: O2SAT 97
[2022-01-28 06:55] LABS: BUN Creatinine Ratio 18.1 (6-22); Blood Urea Nitrogen 13 mg/dL (9-20); Calcium 8.5 mg/dL (8.4-10.2); Carbon Dioxide 26 mmol/L (22-32); Chloride 104 mmol/L (98-107); Estimated Glomerular Filt Rate > 60 mL/min (>60); Glucose 92 mg/dL (70-100); HEMOLYSIS < 15 (0-50); Potassium 3.8 mmol/L (3.4-5.1); Sodium 139 mmol/L (137-145)
[2022-01-28 07:07] LABS: Troponin I < 0.012 ng/mL (0.01-0.034)
--- NOTE | 2022-01-28 07:17 | PM.DS.1 ---
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 Patient presented to the ED for complaints of 2 episodes this afternoon with near syncope/dizziness and palpitations.? Had some discomfort in the chest clavicle-2nd intercostal.? Patient reports he initially experienced sternal left side chest discomfort with deep breathing and movement did not radiate was able to press and elicit pain, this discomfort continues to come and go with movement.? Patient notes that while he is consistently physically active with exercise he recently initiated an aggressive weight training exercise routine within the last week.? Second episode was midsternal left side approximately 4-6th intercostal spaces stabbing lasting only a few seconds, no radiation, during the end of his walk this morning he is not able to reproduce this pain with palpation, he did not experience diaphoresis was mildly short of breath, no headache, changes in vision, weakness, numbness, tingling, he did endorse feeling dizzy, near syncopal episode.? Patient also noted once home and resting heart rate was in the 140s and his Apple watch had difficulty reading the rhythm.? Patient notes he has several family members with a history of atrial fibrillation but no other cardiac history.?Was symptom-free upon arrival in ED.? Patient did receive COVID booster this past Tuesday.? In the past vaccinations he would have chest discomfort.? However today's symptoms are new.? He was exercising at home and what was supposed to take 42 minutes ended up taking a lot longer.? He was dizzy, very fatigued and felt like he was going to pass out.? Had palpitations. Patient had stress test many many years ago.? He does have hypercholesteremia chronically since childhood, unable to tolerate statins, has been prescribed injectable medication-Repatha but [place] No recent illness otherwise.? No primary family history of coronary artery disease, positive history for heart attacks to both grandfathers, and multiple family members with atrial fibrillation.? Patient notes he has had repeated episodes of pneumonia in the past, and suffers from mild asthma, but no cardiac history.? Does have a history of adrenal insufficiency but has not required treatment for the past year or 2.? Patient takes Flovent, Keppra, and levothyroxine.? Patient notes that his seizure disorder results in comprehension, and dysarthria, with a postictal memory loss, but without loss of consciousness or uncontrolled muscle movement. Patient was stable and asymptomatic upon admit temp 98.1?, BP 142/81, HR 63, R 18, O2 saturation 97% on room air.? Patient's CBC and CMP were WNL ESR 25 likely secondary to COVID booster, AST 90 ALT 69, these are chronic for the patient and at baseline, T CK 1172, CK 2 3.14, troponin, lipase WNL, total protein 8.4, chest x-ray was negative for any acute cardiopulmonary processes, EKG NSR with a rate of [address] or T-wave changes. Patient admitted for chest pain, tachycardia, near-syncope, for risk stratification.? Heart score 2 Discharge Providers Provider Date of admission: 01/27/22 23:12 Discharge Date: 01/28/22 Discharge provider: Dioni Ashby DO Summary Hospital Course Discharge Diagnosis: 1. Chest pain (dizziness, palpation, tachycardia, near-syncope), acute, present on admission -heart score of 2, family history of heart attack, atrial fibrillation, hypercholesterolemia -patient admitted for chest pain rule out risk stratification -stress test and echo were normal with EF 55-60% and no focal WMA's -troponins, Mag -ASA, Lovenox 2. Hypercholesteremia, chronic, present on admission -LDL 182 -patient unable to tolerate statins -was prescribed Repatha injectable but has been unable to obtain medication. 3. 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 Epilepsy(simple partial seizures), secondary to brain surgery, chronic, present on admission-well controlled -continue Keppra 5. Liver disease, chronic, not related to alcohol, present on admission -AST 98, ALT 69 -lipase, amylase, LDH normal 6. Asthma, mild, chronic, present on [id number] -continue Flovent Hospital Course: Admitted for chest pain and palpitations with dizziness concerning to be ACS. Underwent exercise stress test which was normal. Echo was also normal. No arrythmias see on EKG or tele. Patient advised to f/u with PCP for cardiology referral for Zio patch. Time Spent with Patient Time spent: Greater than 30 minutes Exam Vital Signs (past 8 hours): - 01/27/22 23:30 01/27/22 23:30 01/28/22 00:34 Temperature 97.9 F Pulse Rate 53 L 56 L Respiratory Rate 13 17 Blood Pressure 118/67 145/76 H Pulse Oximetry 98 99 Oxygen Delivery Method Oxygen Flow Rate 0 01/28/22 01:41 01/28/22 06:40 01/28/22 06:15 Temperature 97.9 F Pulse Rate 62 Respiratory Rate 16 Blood Pressure 91/51 L Pulse Oximetry 98 97 97 Oxygen Delivery Method Room Air Room Air Oxygen Flow Rate 0 Oxygen Delivery Method Room Air Oxygen Flow Rate 0 Narrative Exam Narrative: GEN: no acute distress HEENT: moist mucous membranes, PERRL NECK: trachea midline, no JVD CV: regular rate and rhythm, no murmurs PULM: clear bilaterally ABD: soft, nontender, nondistended, no organomegaly EXT: warm and well perfused with no edema NEURO: awake, alert, oriented, no focal deficits Objective Labs Result Diagrams: 01/27/22 18:30 01/28/22 06:35 Labs: Laboratory Results - last 24 hr 01/27/22 01/27/22 01/27/22 18:30 18:30 18:30 WBC 6.6 RBC 4.62 Hgb 14.6 Hct 42.7 MCV 92.5 MCH 31.6 MCHC 34.2 RDW 12.4 Plt Count 229 Neut % (Auto) 48.8 L Lymph % (Auto) 39.2 [place] % (Auto) 8.6 Eos % (Auto) 2.9 Baso % (Auto) 0.5 Neut # (Auto) 3200 Lymph # (Auto) 2600 [place] # (Auto) 600 Eos # (Auto) 200 Baso # (Auto) 0 ESR 25 H PT INR APTT Sodium 141 Potassium 4.0 Chloride 100 Carbon Dioxide 28 BUN 12 Creatinine 0.76 Estimated GFR > 60 BUN/Creatinine Ratio 15.8 Glucose 106 H Calcium 8.9 Magnesium 2.1 Total Bilirubin 0.4 AST 98 H ALT 69 H Alkaline Phosphatase 58 Lactate Dehydrogenase Total Creatine Kinase 1172 H CK-MB (CK-2) 3.14 H CK-MB (CK-2) Rel Index 0.3 L Troponin I < 0.012 NT-Pro-B Natriuret Pep Total Protein 8.4 H Albumin 4.5 Globulin 3.9 Albumin/Globulin Ratio 1.2 Triglycerides Cholesterol LDL Cholesterol, Calc HDL Cholesterol Amylase Lipase 63 SARS-CoV-2 (PCR) 01/27/22 01/27/22 01/27/22 18:50 18:50 18:50 WBC RBC Hgb Hct MCV MCH MCHC RDW Plt Count Neut % (Auto) Lymph % (Auto) [place] % (Auto) Eos % (Auto) Baso % (Auto) Neut # (Auto) Lymph # (Auto) [place] # (Auto) Eos # (Auto) Baso # (Auto) ESR PT INR APTT Sodium Potassium Chloride Carbon Dioxide BUN Creatinine Estimated GFR BUN/Creatinine Ratio Glucose Calcium Magnesium 2.2 Total Bilirubin AST ALT Alkaline Phosphatase Lactate Dehydrogenase Total Creatine Kinase CK-MB (CK-2) CK-MB (CK-2) Rel Index Troponin I NT-Pro-B Natriuret Pep 54 Total Protein Albumin Globulin Albumin/Globulin Ratio Triglycerides 441 H Cholesterol 317 H LDL Cholesterol, Calc TNP HDL Cholesterol 38 L Amylase Lipase SARS-CoV-2 (PCR) 01/27/22 01/27/22 01/27/22 18:50 18:50 18:50 WBC RBC Hgb Hct MCV MCH MCHC RDW Plt Count Neut % (Auto) Lymph % (Auto) [place] % (Auto) Eos % (Auto) Baso % (Auto) Neut # (Auto) Lymph # (Auto) [place] # (Auto) Eos # (Auto) Baso # (Auto) ESR PT 11.0 INR 1.0 APTT 29 Sodium Potassium Chloride Carbon Dioxide BUN Creatinine Estimated GFR BUN/Creatinine Ratio Glucose Calcium Magnesium Total Bilirubin AST ALT Alkaline Phosphatase Lactate Dehydrogenase 548 Total Creatine Kinase CK-MB (CK-2) CK-MB (CK-2) Rel Index Troponin I NT-Pro-B Natriuret Pep Total Protein Albumin Globulin Albumin/Globulin Ratio Triglycerides Cholesterol LDL Cholesterol, Calc HDL Cholesterol Amylase 62 Lipase SARS-CoV-2 (PCR) 01/27/22 01/28/22 01/28/22 23:56 00:55 06:35 WBC RBC Hgb Hct MCV MCH MCHC RDW Plt Count Neut % (Auto) Lymph % (Auto) [place] % (Auto) Eos % (Auto) Baso % (Auto) Neut # (Auto) Lymph # (Auto) [place] # (Auto) Eos # (Auto) Baso # (Auto) ESR PT INR APTT Sodium 139 Potassium 3.8 Chloride 104 Carbon Dioxide 26 BUN 13 Creatinine 0.72 Estimated GFR > 60 BUN/Creatinine Ratio 18.1 Glucose 92 Calcium 8.5 Magnesium Total Bilirubin AST ALT Alkaline Phosphatase Lactate Dehydrogenase Total Creatine Kinase CK-MB (CK-2) CK-MB (CK-2) Rel Index Troponin I < 0.012 NT-Pro-B Natriuret Pep Total Protein Albumin Globulin Albumin/Globulin Ratio Triglycerides Cholesterol LDL Cholesterol, Calc HDL Cholesterol Amylase Lipase SARS-CoV-2 (PCR) Negative [facility] Medical History (Updated 01/28/22 @ 06:23 by Serena Wong [facility]) Astrocytoma of frontal lobe Chronic nonalcoholic liver disease Epilepsy History of adrenal insufficiency History of hypercholesterolemia History of radiation therapy 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 Surgical History (Updated 01/28/22 @ 06:23 [facility] History of adenoidectomy History of appendectomy History of brain surgery History of tonsillectomy Family History Grandfather Heart attack Atrial fibrillation by electrocardiogram Daughter Polycythemia Social History household members: spouse Smoking Status: Never smoker alcohol intake: current Discharge Plan Discharge Plan Patient Disposition: Home Provider Discharge Comment: You were admitted with chest pain and fast heart rate, and there was concern this may be from your heart. However all of your cardiac workup was normal including stress test, echocardiogram, EKG and heart enzymes. We did not find any arrhythmias to explain what you felt with the fluttering and high heart rate. Please f/u with your PCP for a cardiology referral to have a holter monitor or Zio patch placed which will detect any fast heart rate arrhythmias over the course of weeks to a month. We also incidentally found your liver enzymes were elevated, which may be a result of your high cholesterol causing fatty liver, but I would discuss this with your PCP. Discharge orders & Medications Prescriptions: Continued levothyroxine [Synthroid] 150 mcg tablet 150 mcg PO DAILY levetiracetam [Keppra XR] 500 mg tablet extended release 24 hr 1,500 mg PO DAILY levetiracetam [Keppra XR] 500 mg tablet extended release 24 hr 2,000 mg PO ONCE PM fluticasone propionate [Flovent HFA] 110 mcg/actuation HFA aerosol inhaler 1 puff INHALATION DAILY Discharge Data Attending Provider: Serena Wong VTE Deep Vein Thrombosis/Pulmonary Embolism Present on Admission: No
[2022-01-28 07:39] LABS: TSH w/ Reflex to FT4 2.38 uIU/mL (0.47-4.68)
[2022-01-28 07:40] LABS: Cortisol AM (Before 10AM) 17.9 ug/dL (4.46-22.7)
[2022-01-28 08:33] LABS: Cholesterol 247 mg/dL (140-199); HDL Cholesterol 33 mg/dL (40-60); LDL Cholesterol Calculated 182 mg/dL (<100); Triglycerides 158 mg/dL (35-150)
[2022-01-28 09:00] VITALS: BP 96/65; PULSE 100; RESP 18; TEMP 36.4; O2SAT 97
[2022-01-28 10:00] VITALS: O2SAT 97
[2022-01-28] MEDS: LEVETIRACETAM 500 MG 1500 EACH PO (10:53)
[2022-01-28] MEDS: SODIUM CHLORIDE 0.9% FLUSH 10 ML IV (10:53)
[2022-01-28] MEDS: ENOXAPARIN 40 MG/0.4 ML SYRINGE SUBCUT (10:53)
[2022-01-28] MEDS: LEVOTHYROXINE 150 MCG TABLET PO (10:53)
[2022-01-28] MEDS: ASPIRIN EC 81 MG TABLET PO (10:53)
--- NOTE | 2022-01-28 11:59 | CM.DANOTE ---
Discharge Assessment Note: Case reviewed, met with patient. Introduced self and role. Payer: [employer] PCP: Unknown (in [place]) 51 year old male admitted yesterday with chest pain which resolved with medical management. Patient lives at home with his spouse who will assist with any needs. Plan: Discharge home today per MD, spouse will transport. [facility] Discharge Planning/Care Management Advanced directive, confirm from FAMILY Start: 01/28/22 01:24 Freq: Q24H Status: Active Protocol: Document 01/28/22 01:24 MP (Rec: 01/28/22 01:47 MP [id number]) Advance Directive, confirm on record Time 01:24 Person contacted pt. Copy received No CM Discharge Assessment Start: 01/28/22 11:58 Freq: Status: Active Protocol: Document 01/28/22 11:58 (Rec: 01/28/22 11:59 [id number]) Discharge Planning Assessment Assigned Building Insulation Supervisor Yokasta Borrero RN/DCP Advance Directives? Yes Advance Directives on File No: Spouse will call their staff attorney History Provided By Patient Prior Living Arrangements House Household Members spouse Type of transporation used prior to Drives own vehicle admit Independent with ADL's Yes Is patient alert and oriented? Yes Caregiver for Another No Barriers to Discharge No Discharge Plan Home Referrals Initiated None needed Review Status In Process Next Review Type Continued Stay Review
--- NOTE | 2022-01-28 14:46 | PC.NURSE ---
Pt discharged at 1415, ambulated off floor, escorted spouse and hospital staff. IV removed, tele d/c'd, discharge teaching provided. Questions and concerns addressed. Pt left floor with all belongings.
--- NOTE | 2022-01-28 21:14 | DI.NM.S_ITS ---
DATE OF SERVICE: 01/28/2022 PROCEDURE: Exercise stress test. INDICATION: Chest pain, hyperlipidemia. CARDIAC STRESS: The patient underwent exercise stress test under the supervision of an attending staff. The patient walked on Scooter protocol for 13 minutes and 01 seconds, achieved maximum heart rate of 180, which was 107 percent of target heart rate. Baseline blood pressure 118/82 and peak blood pressure 180/94 mmHg. Achieved 14.8 METs of workload. ANALISA -23 percent. Baseline rhythm sinus. During stress, no obvious ischemic changes seen. No significant arrhythmias. In late recovery, occasional PVCs without any complex arrhythmias. No chest pain or anginal symptoms. CONCLUSION: Exercise stress test is negative for inducible ischemia. Good exercise tolerance. Functional aerobic impairment -23 percent. Resting blood pressure 118/82 and peak blood pressure 180/94. In late recovery, occasional premature ventricular contractions without any complex arrhythmias. No anginal symptoms. Overall, low-risk exercise stress test. Wale Olivarez - Gama/rosario doc#: [id number]/job#: [id number] dd: 01/28/2022 12:51:00 dt: 01/28/2022 21:03:00 DICTATING /COPIES TO: Ulices Peralta MD COPIES MNE: JUAN;
== END 2022-01-28 14:47 | disposition home or self-care (01) ==
LOC: ED 22:31 → AC 23:13
PROVIDERS: Admitting Provider Nurse Practitioner Family; Emergency Provider Emergency Medicine; Visit Provider Nurse Practitioner Family
DX: R07.9 Chest pain, unspecified (principal); E78.00 Pure hypercholesterolemia, unspecified; E89.0 Postprocedural hypothyroidism; E89.3 Postprocedural hypopituitarism; G40.509 Epileptic seizures related to external causes, not intractable, without status epilepticus; J45.20 Mild intermittent asthma, uncomplicated; K76.89 Other specified diseases of liver; Z20.822 Contact with and (suspected) exposure to COVID-19
CPT/HCPCS: 36415; 71045; 80048; 80053; 80061; 82150; 82533; 82550; 82553; 83615; 83690; 83735; 83880; 84443; 84484; 85025; 85610; 85651; 85730; 87635; 93005; 93017; 93306; 96372; 99284; C9803; G0378; J1650

== ENCOUNTER → 2025-01-29 14:45 | Outpatient (CLI) | payer SELFPAY | PROVIDERS: PCP Physician Assistant Medical; Visit Provider Nurse Practitioner Family | DX: J02.9 Acute pharyngitis, unspecified (principal) | CPT/HCPCS: 87070 ==

== ENCOUNTER → 2025-01-29 14:48 | Outpatient (CLI) | payer SELFPAY ==
--- NOTE | 2025-01-29 14:51 | DI.RAD.S_ITS ---
PROCEDURE: XR ABDOMEN 1V INDICATIONS: Constipation TECHNIQUE: One view of the abdomen acquired. COMPARISON: None. FINDINGS: Moderate amount of stool throughout the colon in a pattern of constipation. No abnormally dilated bowel to suggest obstruction, no free gas. 3 millimeter calcification right low pelvis commonly phlebolith. IMPRESSION: Pattern of constipation. If symptoms persist or worsen, or there is high clinical suspicion of abdominal abnormality, CT could be performed. Dictated by: Tom Guerrero M.D. on 01/30/2025 at 20:25 Approved by: Tom Guerrero M.D. on 01/30/2025 at 20:26
== END ==
PROVIDERS: PCP Physician Assistant Medical; Referring Provider Physician Assistant Medical; Visit Provider Nurse Practitioner Family
DX: K59.00 Constipation, unspecified (principal)
CPT/HCPCS: 74018

== ENCOUNTER → 2025-01-30 08:45 | Outpatient (CLI) | payer OTHER, SELFPAY ==
[2025-01-30 11:38] LABS: Clostridium Difficile Tox PCR Negative for C. diff (Negative)
== END ==
PROVIDERS: PCP Physician Assistant Medical; Referring Provider Nurse Practitioner Family; Visit Provider Nurse Practitioner Family
DX: R19.7 Diarrhea, unspecified (principal)
CPT/HCPCS: 87177; 87205; 87329; 87493

== ENCOUNTER 2025-03-01 11:20 | Emergency (ER) | payer OTHER, SELFPAY ==
[2025-03-01 11:26] VITALS: BP 127/70; PULSE 71; RESP 16; TEMP 36.2; O2SAT 99; BMI 23.8
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
--- NOTE | 2025-03-01 12:02 | DI.US.S_ITS ---
PROCEDURE: US SCROTUM INDICATIONS: R testicular pain TECHNIQUE: Real-time scanning was performed of the scrotum and testicles, with image documentation. Color and pulse Doppler interrogation was performed of both testicles. COMPARISON: None. FINDINGS: Right: Testicle is normal in size at 4.7 x 1.8 x 3.3 cm, and homogenous in echotexture. Epididymis is normal in overall size and morphology. No hydrocele or varicoceles. Overlying scrotal skin is normal in thickness. Left: Testicle is normal in size at 4.0 x 1.5 x 3.3 cm, and homogeneous in echotexture. Epididymis is normal in overall size and morphology. No hydrocele or varicoceles. Overlying scrotal skin is normal in thickness. Doppler: Color and pulse Doppler demonstrate normal and symmetric arterial flow in both testicles. IMPRESSION: 1. Unremarkable scrotal ultrasound. No testicular torsion, testicular mass, epididymitis, or orchitis. Dictated by: James Julian M.D. on 03/01/2025 at 13:12 Approved by: James Julian M.D. on 03/01/2025 at 13:12
[2025-03-01 12:29] LABS: Add Manual Diff / Slide Review NO; Hematocrit 45.1 % (41-53); Hemoglobin 15.5 g/dL (13.5-17.5); Lymphocytes Absolute Auto 2100 /uL (1100-4500); Mean Corpuscular HGB Conc 34.4 % (30-36); Mean Corpuscular Hemoglobin 31.4 PG (26-34); Mean Corpuscular Volume 91.5 fL (80-100); Platelet Count 237 X10^3/uL (150-400)
[2025-03-01 12:41] LABS: Alanine Aminotransferase 30 IU/L (<50); Albumin 4.9 g/dL (3.5-5.0); Albumin Globulin Ratio 1.3 (1.0-2.8); Alkaline Phosphatase 58 U/L (38-126); Blood Urea Nitrogen 18 mg/dL (9-20); Calcium 9.4 mg/dL (8.4-10.2); Carbon Dioxide 27 mmol/L (22-32); Chloride 103 mmol/L (98-107); Estimated Glomerular Filt Rate > 60 mL/min (>60); Globulin 3.7 g/dL (1.7-4.1); Glucose 107 mg/dL (70-99); HEMOLYSIS 28 (0-50); Lipase 77 U/L (23-300); Potassium 4.1 mmol/L (3.4-5.1); Sodium 139 mmol/L (137-145); Total Protein 8.6 g/dL (6.3-8.2)
[2025-03-01 13:09] LABS: Appearance Urine UA CLEAR; Bilirubin Urine UA NEGATIVE (NEGATIVE); Color Urine UA YELLOW; Glucose Urine UA NEGATIVE (Negative); Ketones Urine UA NEGATIVE (NEGATIVE); Leukocyte Esterase Urine UA NEGATIVE (NEGATIVE); Nitrite Urine UA NEGATIVE (Negative); Occult Blood Urine UA TRACE-INTACT (Negative); Protein Urine UA NEGATIVE (Negative); Specific Gravity Urine UA 1.010 (1.000-1.035); Urobilinogen Urine UA 0.2 E.U./dL (0.2); pH Urine UA 5.5 (4.5-8.0)
[2025-03-01 13:16] LABS: Culture Indicated Urine Cult Not Indicated
--- NOTE | 2025-03-01 13:18 | DI.CT.S_ITS ---
PROCEDURE: CT ABDOMEN PELVIS W CON INDICATIONS: R groin/testicule pain; stone? TECHNIQUE: After the administration of intravenous contrast, axial sections acquired from the lung bases to the pubic symphysis. Coronal and sagittal reformats were performed. For radiation dose reduction, the following was used: automated exposure control, adjustment of mA and/or kV according to patient size. COMPARISON: [facility], CT, CT ABDOMEN PELVIS WITH CONTRAST, 01/25/2023, 18:33. FINDINGS: FINDINGS: Quality: Diagnostic. Lower Chest: Unremarkable. Abdomen: Liver: Unremarkable. Gallbladder and bile ducts: Unremarkable. Pancreas: Unremarkable. Spleen: Unremarkable. Adrenal Glands: 1.8 centimeter right adrenal nodule, increased in size from 1.6 centimeter on prior examination in 2022. No left adrenal nodule. Kidneys and Ureters: Unremarkable. Stomach: Unremarkable. Bowel: No abnormal dilation. No wall thickening. Normal appendix. Peritoneum: No free fluid. No free air. Nonspecific mesenteric misting. Pelvis: Reproductive: Unremarkable. Bladder: Unremarkable. Other: Lymphatic: No adenopathy. Vasculature: No aortic aneurysm. Scattered calcified atherosclerotic plaques. Abdominal wall: Intact. Bones: No aggressive osseous lesion. IMPRESSION: Nonspecific mesenteric misting. Right adrenal nodule increased in size. Further evaluation with MRI recommended if not previously performed. Dictated by: Oli Mendez M.D. on 03/01/2025 at 14:17 Approved by: Oli Mendez M.D. on 03/01/2025 at 14:25
[2025-03-01 14:39] LABS: Urine N gonorrhoeae NOT DETECTED
[2025-03-01 14:42] LABS: Urine Chlamydia NOT DETECTED
--- NOTE | 2025-03-01 15:16 | PC.NURSE ---
no obvious injury stated in urogenital area. denies dysuria.
[2025-03-01 15:37] VITALS: BP 126/68; PULSE 56; RESP 16; O2SAT 99
== END 2025-03-01 15:38 | disposition home or self-care (01) ==
PROVIDERS: Emergency Provider Physician Assistant
DX: N50.811 Right testicular pain (principal); E27.8 Other specified disorders of adrenal gland
CPT/HCPCS: 74177; 76870; 80053; 81001; 83690; 85025; 87491; 87591; 93976; 99281; 99284; Q9967